=== PATIENT | female | born 1935 | race American Indian/Alaskan Native ===

== ENCOUNTER 2017-04-26 11:00 | Outpatient (CLI) | payer MEDICARE ==
--- NOTE | 2017-04-26 14:48 | Mammography Report ---
BILATERAL DIGITAL SCREENING MAMMOGRAM with CAD :04/26/17 11:00:00 CLINICAL: Routine screening. COMPARISON:07/21/15 FINDINGS: The breasts are extremely dense, which lowers the sensitivity of mammography. Numerous bilateral scattered calcifications with benign morphology are not significantly changed compared to prior exams.No mass, architectural distortion or suspicious calcifications. IMPRESSION: No mammographic evidence of malignancy. BI-RADS CATEGORY: 2 -- Benign RECOMMENDATION: Routine mammographic screening in one year. ACR BI-RADS MAMMOGRAPHIC CODES: 0 = Needs additional imaging evaluation; 1 = Negative; 2 = Benign; 3 = Probably benign; 4 = Suspicious; 5 = Malignant; 6 = Known biopsy-proven malignancy COMMENT: 1. Dense breast tissue, i.e., adenosis, fibrocystic changes, etc., may obscure an underlying neoplasm. 2. Approximately 10% of cancers are not detected with mammography. 3. A negative mammography report should not delay biopsy if a clinically suspicious mass is present. Patient follow-up letters are generated by our [employer] application.
== END 2017-04-26 11:01 | disposition home or self-care (01) ==
LOC: SPVWC 11:00
PROVIDERS: ATTEND Internal Medicine
DX: Z12.31 Encounter for screening mammogram for malignant neoplasm of breast (principal)
CPT/HCPCS: 77067; G0202

== ENCOUNTER 2019-05-04 08:32 | Outpatient (CLI) | payer MEDICARE ==
--- NOTE | 2019-05-04 12:01 | Mammography Report ---
DIGITAL SCREENING MAMMOGRAM WITH CAD, 05/04/2019 INDICATION: Routine screening mammography. TECHNIQUE: Digital bilateral 2D mammography was obtained in the craniocaudal and mediolateral obliq ue projections. This examination was interpreted with the benefit of Computer-Aided Detection analysi s. COMPARISON: 04/26/2017 and 07/21/2015 FINDINGS: Breast Density: The breasts are extremely dense, which lowers the sensitivity of mammography. There is no evidence of dominant mass, suspicious calcifications or architectural distortion in eithe r breast. Multiple groups of bilateral calcifications with benign morphology are stable. IMPRESSION: No mammographic evidence of malignancy. Follow up recommendation: Routine yearly BI-RADS Category 2: Benign. A "normal" or negative report should not discourage follow up or biopsy of a clinically significant f inding. A written summary of these findings will be mailed to the patient. The patient will be entered into a mammography reporting system which will generate a reminder letter for the patient's next appointmen t at the appropriate interval. The [employer] recommends yearly mammograms starting at age 40 and continuing as l nelson as a woman is in good health. Breast MRI is recommended for women with an approximate 20-25% or greater lifetime risk of breast cancer, including women with a strong family history of breast or ova debbie cancer or who have been treated for Hodgkin's disease. Signer Name: Pramod Stone MD Signed: 05/04/2019 11:56 AM Workstation Name: [id number]
== END 2019-05-04 08:33 | disposition home or self-care (01) ==
LOC: SPVWC 08:32
PROVIDERS: ATTEND Internal Medicine
DX: Z12.31 Encounter for screening mammogram for malignant neoplasm of breast (principal)
CPT/HCPCS: 77067

== ENCOUNTER 2021-02-07 19:04 | Inpatient (IN) | payer MEDICARE ==
--- NOTE | 2021-02-07 19:44 | History and Physical Report ---
History of Present Illness Date of examination: 02/07/21 Date of admission: 02/07/2021 Chief complaint: Fever and confusion for 3 days History of present illness: 85-year-old female with past medical history of borderline diabetes and early dementia is being admitted directly for intermittent confusion for 3 days and low-grade fever intermittently for [address] Love suspects urinary tract infection and request made for direct admission. Patient was admitted directly from home on the presumption of confusion and UTI. Patient also has mild cough and congestion. Slightly altered sensorium. More alert when I examined the patient. Patient is on Macrobid for 6 days for UTI and positive nitrites in the urine. No side effects from Macrobid. No shortness of breath no chest pain. Past History Past Medical History: diabetes, hypertension Past Surgical History: No surgical history Social history: lives with family, full code Family history: hypertension Medications and Allergies Allergies Allergy/AdvReac Type Severity Reaction Status Date / Time No Known Allergies Allergy Verified 02/08/21 00:12 Review of Systems All systems: negative Constitutional: fever, fatigue, weakness, poor appetite, no weight loss, no weight gain Ears, nose, mouth and throat: no ear pain, no ear discharge, no tinnitis, no decreased hearing Breasts: deferred Cardiovascular: no chest pain, no orthopnea, no palpitations, no rapid/irregular heart beat, no shortness of breath Respiratory: cough, congestion Gastrointestinal: no abdominal pain, no nausea, no vomiting, no diarrhea, no constipation Genitourinary Female: dysuria Musculoskeletal: no neck pain, no shooting arm pain Integumentary: no rash, no pruritis, no redness Neurological: no seizures, no syncope, no lack of coordination Psychiatric: memory loss (Mild), no anxiety Exam - Constitutional General appearance: Present: no acute distress, well-nourished - EENT Eyes: Present: PERRL ENT: hearing intact, clear oral mucosa - Neck Neck: Present: supple, normal ROM - Respiratory Respiratory effort: normal Respiratory: bilateral: CTA - Cardiovascular Heart rate: 78 Rhythm: regular Heart Sounds: Present: S1 & S2. Absent: rub, click - Extremities Extremities: no ischemia, pulses intact, pulses symmetrical, No edema Peripheral Pulses: within normal limits - Abdominal General gastrointestinal: Present: soft, non-tender, non-distended, normal bowel sounds Female genitourinary: Present: normal - Integumentary Integumentary: Present: clear, warm, dry - Musculoskeletal Musculoskeletal: gait normal, strength equal bilaterally - Psychiatric Psychiatric: appropriate mood/affect, intact judgment & insight - Neurologic Neurologic: CNII-XII intact, moves all extremities - Allied Health Allied health notes reviewed: nursing, case management Results - Labs Labs: Labs are pending Assessment and Plan Advance Directives: Yes (Full code) VTE prophylaxis?: Chemical Plan of care discussed with patient/family: Yes - Patient Problems (1) Acute encephalopathy Current Visit: Yes Status: Acute Plan to address problem: Possibly secondary to fever and respiratory tract infection and previous urinary tract infection Urine is clear CBC and CMP are pending even though ordered 1945 hrs. Treat as presumed UTI/respiratory tract infection IV fluids and IV Rocephin for now Discussed with Dr. Cameron who was at bedside (2) UTI (urinary tract infection) Current Visit: Yes Status: Acute Qualifiers: Urinary tract infection type: acute cystitis Plan to address problem: Treated at home with Macrobid Continue IV ceftriaxone Urine cultures are pending (3) T2DM (type 2 diabetes mellitus) Current Visit: Yes Status: Chronic Qualifiers: Diabetes mellitus shelter insulin use: unspecified shelter insulin use status Plan to address problem: As per daughter's last A1c was 7.3 here the A1c is pending Accu-Cheks AC at bedtime and coverage with moderate dose sliding scale (4) DVT prophylaxis Current Visit: Yes Status: Acute Plan to address problem: On heparin and GI prophylaxis
[2021-02-07] MEDS ORDERED: oxyCODONE /ACETAMINOPHEN 5-325MG TAB PO PRN (19:45)
[2021-02-07] MEDS ORDERED: ACETAMINOPHEN 325 MG TAB PO PRN (19:45)
[2021-02-07] MEDS ORDERED: HYDROmorphone 1 MG/1 ML INJ IV PRN (19:45)
[2021-02-07] MEDS ORDERED: METOCLOPRAMIDE 10 MG/2 ML INJ IV PRN (19:45)
[2021-02-07] MEDS ORDERED: ONDANSETRON 4 MG/2 ML INJ IV PRN (19:45)
[2021-02-07] MEDS ORDERED: D5W/0.9% NACL 1,000 ML IV SCH (20:00)
[2021-02-07 22:27] LABS: Bacteria,Urine 1+ /HPF (Negative); Bilirubin,Urine NEG (Negative); Blood,Urine NEG (Negative); Color,Urine Yellow (Yellow); Mucus,Urine FEW /HPF; Protein,Urine <15 mg/dL mg/dL (Negative); Urobilinogen,Urine < 2.0 mg/dL (<2.0)
[2021-02-08] MEDS ORDERED: cefTRIAXone/NS 2 GM/100 ML 2 GM/100 ML BAG IV SCH ×2 (00:30→22:00)
[2021-02-08] MEDS: INSULIN LISPRO 100 UNIT/ML SUB-Q SCH ×3 (00:55→11:58)
[2021-02-08] MEDS: HEPARIN 5,000 UNIT/1 ML VIAL SUB-Q SCH ×3 (01:01→23:22)
[2021-02-08] MEDS: FAMOTIDINE 20 MG TAB PO SCH ×2 (01:01→10:27)
[2021-02-08 06:39] LABS: Basophils % (Auto) 0.3 % (0.0-1.8); Eosinophils # (Auto) 0.4 K/mm3 (0.0-0.4); Eosinophils % (Auto) 4.3 % (0.0-4.3); Hemoglobin 12.8 gm/dl (10.1-14.3); Lymphocytes % (Auto) 9.4 % (13.4-35.0); Mean Corpuscular HGB Conc 34 % (30-34); Mean Corpuscular Volume 97 fl (79-97); Monocytes # (Auto) 0.6 K/mm3 (0.0-0.8); Monocytes % (Auto) 5.7 % (0.0-7.3); Platelet Count 270 K/mm3 (140-440); Red Blood Count 3.92 M/mm3 (3.65-5.03); Red Cell Distribution Width 14.5 % (13.2-15.2)
[2021-02-08 07:17] LABS: Alanine Aminotransferase 11 units/L (7-56); Albumin 3.2 g/dL (3.9-5); BUN/Creatinine Ratio 16; Blood Urea Nitrogen 13 mg/dL (7-17); C-Reactive Protein 22.1 mg/dL (0.00-1.30); Calcium 9.7 mg/dL (8.4-10.2); Hemolysis Index 7
[2021-02-08 07:51] LABS: Basophils % (Auto) 0.3 % (0.0-1.8); Eosinophils # (Auto) 0.5 K/mm3 (0.0-0.4); Eosinophils % (Auto) 4.6 % (0.0-4.3); Hematocrit 34.8 % (30.3-42.9); Lymphocytes # (Auto) 0.9 K/mm3 (1.2-5.4); Mean Corpuscular HGB Conc 34 % (30-34); Mean Corpuscular Volume 95 fl (79-97); Monocytes # (Auto) 0.6 K/mm3 (0.0-0.8); Monocytes % (Auto) 5.8 % (0.0-7.3); Platelet Count 269 K/mm3 (140-440); Red Blood Count 3.65 M/mm3 (3.65-5.03); Red Cell Distribution Width 14.3 % (13.2-15.2)
[2021-02-08 09:04] LABS: Alanine Aminotransferase 10 units/L (7-56); Blood Urea Nitrogen 13 mg/dL (7-17); Calcium 9.4 mg/dL (8.4-10.2); Hemolysis Index 17
--- NOTE | 2021-02-08 09:09 | XRay Report ---
CHEST 1 VIEW INDICATION: cough. COMPARISON: None FINDINGS: Support devices: None. Heart: Within normal limits. Lungs/Pleura: The interstitium is prominent throughout both lungs which probably represent chronic in terstitial changes. There is no evidence for acute infiltrate, fibrosis, pleural effusion or pneumoth orax. Additional findings: None. IMPRESSION: No acute process is appreciated. Chronic interstitial changes as described. Signer Name: Pernell Benitez Jr, MD Signed: 02/08/2021 9:04 AM Workstation Name: [id number]
[2021-02-08 09:40] LABS: BUN/Creatinine Ratio 19
[2021-02-08 10:01] LABS: Albumin 2.9 g/dL (3.9-5)
[2021-02-08] MEDS ORDERED: HALOPERIDOL LACTATE 5 MG/1 ML INJ IM ONE (13:00)
[2021-02-08] MEDS ORDERED: METOCLOPRAMIDE 10 MG/2 ML INJ IV PRN (13:00)
--- NOTE | 2021-02-08 13:24 | Progress Note ---
Assessment and Plan Assessment and plan: - Patient Problems (1) Acute encephalopathy Current Visit: Yes Status: Acute Plan to address problem: Possibly secondary to fever and respiratory tract infection and previous urinary tract infection Urine is clear CBC and CMP are pending even though ordered 1945 hrs. Treat as presumed UTI/respiratory tract infection IV fluids and IV Rocephin for now Discussed with Dr. Cameron who was at bedside (2) UTI (urinary tract infection) Current Visit: Yes Status: Acute Qualifiers: Urinary tract infection type: acute cystitis Plan to address problem: Treated at home with Macrobid Continue IV ceftriaxone Urine cultures are pending (3) T2DM (type 2 diabetes mellitus) Current Visit: Yes Status: Chronic Qualifiers: Diabetes mellitus [facility] insulin use: unspecified exterminator helper insulin use status Plan to address problem: As per daughter's last A1c was 7.3 here the A1c is pending Accu-Cheks AC at bedtime and coverage with moderate dose sliding scale (4) DVT prophylaxis Current Visit: Yes Status: Acute Plan to address problem: On heparin and GI prophylaxis 02/08/21 Patient with dementia, diabetes, She presented with fever, altered mental status. She was being treated for UTI as outpatient. I discussed with Dr. Torres, daughter at bedside. She states patient had fever of 101 few days ago. Continue Ceftriaxone for UTI. Consulted ID Covid-19 test pending. patient vaccinated Agitation: will give Haldol prn History Interval history: patient presented with fever, cough,altered mental status. Was being treated for UTI as outpatient Fever 101 few days ago Hospitalist Physical - Physical exam Narrative exam: Gen: Not in acute distress, Agitated, trying to get out of bed HEENT: Normocephalic, atraumatic Neck : supple, no JVD Heart:S1 and S2 reg, no murmurs, rubs or gallop Lungs: clear to auscultation bilaterally, no wheeze Abd: Soft , non tender, non distended, normal bowel sounds Ext: No edema, no clubbing, no cyanosis Neuro: Awake, alert, confused, has dementia - Constitutional Vitals: Temp Pulse Resp BP Pulse Ox 0 L 02/07/21 21:46 General appearance: Present: no acute distress, well-nourished Results - Labs CBC & Chem 7: 02/08/21 07:31 02/08/21 07:31 Labs: Laboratory Last Values WBC 10.5 K/mm3 (4.5-11.0) 02/08/21 07:31 RBC 3.65 M/mm3 (3.65-5.03) 02/08/21 07:31 Hgb 12.0 gm/dl (10.1-14.3) 02/08/21 07:31 Hct 34.8 % (30.3-42.9) 02/08/21 07:31 MCV 95 fl (79-97) 02/08/21 07:31 MCH 33 pg (28-32) H 02/08/21 07:31 MCHC 34 % (30-34) 02/08/21 07:31 RDW 14.3 % (13.2-15.2) 02/08/21 07:31 Plt Count 269 K/mm3 (140-440) 02/08/21 07:31 Lymph % (Auto) 9.0 % (13.4-35.0) L 02/08/21 07:31 [place] % (Auto) 5.8 % (0.0-7.3) 02/08/21 07:31 Eos % (Auto) 4.6 % (0.0-4.3) H 02/08/21 07:31 Baso % (Auto) 0.3 % (0.0-1.8) 02/08/21 07:31 Lymph # (Auto) 0.9 K/mm3 (1.2-5.4) L 02/08/21 07:31 [place] # (Auto) 0.6 K/mm3 (0.0-0.8) 02/08/21 07:31 Eos # (Auto) 0.5 K/mm3 (0.0-0.4) H 02/08/21 07:31 Baso # (Auto) 0.0 K/mm3 (0.0-0.1) 02/08/21 07:31 Seg Neutrophils % 80.3 % (40.0-70.0) H 02/08/21 07:31 Seg Neutrophils # 8.4 K/mm3 (1.8-7.7) H 02/08/21 07:31 D-Dimer 1698.67 ng/mlDDU (0-234) H 02/08/21 05:30 Sodium 139 mmol/L (137-145) 02/08/21 07:31 Potassium 3.9 mmol/L (3.6-5.0) 02/08/21 07:31 Chloride 103.3 mmol/L (98-107) 02/08/21 07:31 Carbon Dioxide 24 mmol/L (22-30) 02/08/21 07:31 Anion Gap 16 mmol/L 02/08/21 07:31 BUN 13 mg/dL (7-17) 02/08/21 07:31 Creatinine 0.7 mg/dL (0.6-1.2) 02/08/21 07:31 Estimated GFR > 60 ml/min 02/08/21 07:31 BUN/Creatinine Ratio 19 % 02/08/21 07:31 Glucose 101 mg/dL (65-100) H 02/08/21 07:31 POC Glucose 101 mg/dL (70-105) 02/08/21 11:54 Hemoglobin A1c 6.4 % (4-6) H 02/08/21 05:30 Calcium 9.4 mg/dL (8.4-10.2) 02/08/21 07:31 Ferritin 277.3 ng/mL (10.0-200.0) H 02/08/21 05:30 Total Bilirubin 0.30 mg/dL (0.1-1.2) 02/08/21 07:31 AST 20 units/L (5-40) 02/08/21 07:31 ALT 10 units/L (7-56) 02/08/21 07:31 Alkaline Phosphatase 59 units/L (35-129) 02/08/21 07:31 Lactate Dehydrogenase 236 units/L (91-180) H 02/08/21 05:30 C-Reactive Protein 22.10 mg/dL (0.00-1.30) H 02/08/21 05:30 Total Protein 7.4 g/dL (6.3-8.2) 02/08/21 07:31 Albumin 2.9 g/dL (3.9-5) L 02/08/21 07:31 Albumin/Globulin Ratio 0.7 % 02/08/21 07:31 Procalcitonin 1.55 ng/mL (<0.15) 02/08/21 05:30 Urine Color Yellow (Yellow) 02/07/21 22:00 Urine Turbidity Clear (Clear) 02/07/21 22:00 Urine pH 7.0 (5.0-7.0) 02/07/21 22:00 Ur Specific [place] 1.012 (1.003-1.030) 02/07/21 22:00 Urine Protein <15 mg/dl mg/dL (Negative) 02/07/21 22:00 Urine Glucose (UA) Neg mg/dL (Negative) 02/07/21 22:00 Urine Ketones Neg mg/dL (Negative) 02/07/21 22:00 Urine Blood Neg (Negative) 02/07/21 22:00 Urine Nitrite Neg (Negative) 02/07/21 22:00 Urine Bilirubin Neg (Negative) 02/07/21 22:00 Urine Urobilinogen < 2.0 mg/dL (<2.0) 02/07/21 22:00 Ur Leukocyte Esterase Neg (Negative) 02/07/21 22:00 Urine WBC (Auto) 2.0 /HPF (0.0-6.0) 02/07/21 22:00 Urine RBC (Auto) 2.0 /HPF (0.0-6.0) 02/07/21 22:00 U Epithel Cells (Auto) 3.0 /HPF (0-13.0) 02/07/21 22:00 Urine Bacteria (Auto) 1+ /HPF (Negative) 02/07/21 22:00 Urine Mucus Few /HPF 02/07/21 22:00 Microbiology: Microbiology 02/08/21 05:30 Peripheral/Venous Blood Culture - Preliminary Culture in Progress 02/08/21 06:09 Peripheral/Venous Blood Culture - Preliminary Culture in Progress Hernandez/IV: Voiding Method Toilet Active Medications - Current Medications Current Medications: Generic Name Dose Route Start Last Admin Trade Name Freq PRN Reason Stop Dose Admin Acetaminophen 650 mg 02/07/21 19:45 Acetaminophen 325 Mg Tab PO Q4H PRN Pain MILD(1-3)/Fever >100.5/HICKS Famotidine 10 mg 02/08/21 22:00 Famotidine 10 Mg Tab PO BID APOLINAR Heparin Sodium (Porcine) 5,000 unit 02/07/21 22:00 02/08/21 10:27 Heparin 5,000 Unit/1 Ml Vial SUB-Q 5,000 unit Q12HR APOLINAR Administration Hydromorphone HCl 0.5 mg 02/07/21 19:45 Hydromorphone 1 Mg/1 Ml Inj IV Q3H PRN Pain , Severe (7-10) Dextrose/Sodium Chloride 1,000 mls @ 100 mls/hr 02/07/21 20:00 02/08/21 02:44 D5ns IV 100 mls/hr DIRECT APOLINAR Administration Ceftriaxone Sodium 2 gm in 100 mls @ 200 mls/hr 02/08/21 22:00 Rocephin/Ns 2 Gm/100 Ml IV 02/12/21 23:59 QHS APOLINAR Protocol Insulin Human Lispro 0 unit 02/07/21 22:00 02/08/21 11:58 Insulin Lispro 100 Unit/Ml SUB-Q Not Given ACHS APOLINAR Protocol Metoclopramide HCl 5 mg 02/08/21 13:00 Metoclopramide 10 Mg/2 Ml Inj IV Q6H PRN Nausea And Vomiting Ondansetron HCl 4 mg 02/07/21 19:45 Ondansetron 4 Mg/2 Ml Inj IV Q3H PRN Nausea And Vomiting Oxycodone/Acetaminophen 1 tab 02/07/21 19:45 Oxycodone /Acetaminophen 5-325mg Tab PO Q6H PRN Pain, Moderate (4-6) Sodium Chloride 10 ml 02/07/21 22:00 02/08/21 10:27 Sodium Chloride 0.9% 10 Ml Flush Syringe IV 10 ml BID APOLINAR Administration Sodium Chloride 10 ml 02/07/21 19:45 Sodium Chloride 0.9% 10 Ml Flush Syringe IV PRN PRN LINE FLUSH
--- NOTE | 2021-02-08 13:32 | Consultation ---
History of Present Illness - Reason for Consult Consult date: 02/08/21 UTI, confusion Requesting physician: DANG SALAZAR - History of Present Illness The patient is an 85-year-old female with borderline diabetes, early dementia admitted to the hospital with intermittent confusion and low-grade fevers for 3 days. Patient was receiving oral Macrobid for a presumed UTI as an outpatient. Patient also has mild cough with congestion, not hypoxic. Upon admission so far, WBC count is normal, D-dimer 1698, renal and liver function normal, ferritin 277, CRP 22.1, procalcitonin 1.5. UA did not show any significant pyuria. Review of Systems: Limited due to confusion Past History Past Medical History: diabetes, hypertension Past Surgical History: No surgical history Social history: lives with family, full code Family history: hypertension Medications and Allergies Allergies Allergy/AdvReac Type Severity Reaction Status Date / Time No Known Allergies Allergy Verified 02/08/21 00:12 Home Medications Medication Instructions Recorded Confirmed Last Taken Type No Known Home Medications [No 02/08/21 02/08/21 Unknown History Reported Home Medications] Active Meds: Active Medications Acetaminophen (Acetaminophen 325 Mg Tab) 650 mg PO Q4H PRN PRN Reason: Pain MILD(1-3)/Fever >100.5/HICKS Famotidine (Famotidine 10 Mg Tab) 10 mg PO BID APOLINAR Heparin Sodium (Porcine) (Heparin 5,000 Unit/1 Ml Vial) 5,000 unit SUB-Q Q12HR APOLINAR Last Admin: 02/08/21 10:27 Dose: 5,000 unit Documented by: Hydromorphone HCl (Hydromorphone 1 Mg/1 Ml Inj) 0.5 mg IV Q3H PRN PRN Reason: Pain , Severe (7-10) Dextrose/Sodium Chloride (D5ns) 1,000 mls @ 100 mls/hr IV DIRECT APOLINAR Last Admin: 02/08/21 02:44 Dose: 100 mls/hr Documented by: Ceftriaxone Sodium (Rocephin/Ns 1 Gm/50 Ml) 1 gm in 50 mls @ 100 mls/hr IV Q24HR APOLINAR; Protocol Insulin Human Lispro (Insulin Lispro 100 Unit/Ml) 0 unit SUB-Q ACHS APOLINAR; Protocol Last Admin: 02/08/21 11:58 Dose: Not Given Documented by: Metoclopramide HCl (Metoclopramide 10 Mg/2 Ml Inj) 5 mg IV Q6H PRN PRN Reason: Nausea And Vomiting Ondansetron HCl (Ondansetron 4 Mg/2 Ml Inj) 4 mg IV Q3H PRN PRN Reason: Nausea And Vomiting Oxycodone/Acetaminophen (Oxycodone /Acetaminophen 5-325mg Tab) 1 tab PO Q6H PRN PRN Reason: Pain, Moderate (4-6) Sodium Chloride (Sodium Chloride 0.9% 10 Ml Flush Syringe) 10 ml IV BID APOLINAR Last Admin: 02/08/21 10:27 Dose: 10 ml Documented by: Sodium Chloride (Sodium Chloride 0.9% 10 Ml Flush Syringe) 10 ml IV PRN PRN PRN Reason: LINE FLUSH Physical Examination - Physical Exam Narrative exam: Physical Exam: Constitutional: Alert. No acute distress Head, Ears, Nose: Normocephalic, atraumatic. External ears, nose normal Eyes: Conjunctivae/corneas clear. No icterus. No ptosis. Neck: Supple, no meningeal signs Cardiovascular: S1, S2 + Respiratory: decreased air entry bilaterally GI: Soft, non-tender; bowel sounds normal. No peritoneal signs Musculoskeletal: No pedal edema, no cyanosis. Skin: No rash or abscess Hem/Lymphatic: No palpable cervical or supraclavicular nodes. No lymphangitis Psych: restless Neurological: Awake, alert, but confused - Constitutional Vitals: Vital Signs Temp Pulse Resp BP Pulse Ox 97.9 F 117 H 20 156/77 98 02/08/21 11:56 02/08/21 11:56 02/08/21 11:56 02/08/21 11:56 02/08/21 11:56 Temperature -Last 24 Hours Temperature 97.9 F Temperature 98.3 F Results - Labs CBC & Chem 7: 02/08/21 07:31 02/08/21 07:31 Labs: Abnormal lab results 02/08/21 02/08/21 02/08/21 Range/Units 00:07 05:30 05:30 MCH 33 H (28-32) pg Lymph % (Auto) 9.4 L (13.4-35.0) % Eos % (Auto) (0.0-4.3) % Lymph # (Auto) 1.0 L (1.2-5.4) K/mm3 Eos # (Auto) (0.0-0.4) K/mm3 Seg Neutrophils % 80.3 H (40.0-70.0) % Seg Neutrophils # 8.3 H (1.8-7.7) K/mm3 D-Dimer (0-234) ng/mlDDU Glucose 105 H (65-100) mg/dL POC Glucose 119 H (70-105) mg/dL Hemoglobin A1c (4-6) % Ferritin (10.0-200.0) ng/mL Lactate Dehydrogenase (91-180) units/L C-Reactive Protein (0.00-1.30) mg/dL Albumin 3.2 L (3.9-5) g/dL 02/08/21 02/08/21 02/08/21 Range/Units 05:30 05:30 05:30 MCH (28-32) pg Lymph % (Auto) (13.4-35.0) % Eos % (Auto) (0.0-4.3) % Lymph # (Auto) (1.2-5.4) K/mm3 Eos # (Auto) (0.0-0.4) K/mm3 Seg Neutrophils % (40.0-70.0) % Seg Neutrophils # (1.8-7.7) K/mm3 D-Dimer 1698.67 H (0-234) ng/mlDDU Glucose 104 H (65-100) mg/dL POC Glucose (70-105) mg/dL Hemoglobin A1c 6.4 H (4-6) % Ferritin (10.0-200.0) ng/mL Lactate Dehydrogenase 236 H (91-180) units/L C-Reactive Protein 22.10 H (0.00-1.30) mg/dL Albumin (3.9-5) g/dL 02/08/21 02/08/21 02/08/21 Range/Units 05:30 07:31 07:31 MCH 33 H (28-32) pg Lymph % (Auto) 9.0 L (13.4-35.0) % Eos % (Auto) 4.6 H (0.0-4.3) % Lymph # (Auto) 0.9 L (1.2-5.4) K/mm3 Eos # (Auto) 0.5 H (0.0-0.4) K/mm3 Seg Neutrophils % 80.3 H (40.0-70.0) % Seg Neutrophils # 8.4 H (1.8-7.7) K/mm3 D-Dimer (0-234) ng/mlDDU Glucose 101 H (65-100) mg/dL POC Glucose (70-105) mg/dL Hemoglobin A1c (4-6) % Ferritin 277.3 H (10.0-200.0) ng/mL Lactate Dehydrogenase (91-180) units/L C-Reactive Protein (0.00-1.30) mg/dL Albumin 2.9 L (3.9-5) g/dL 02/08/21 Range/Units 08:39 MCH (28-32) pg Lymph % (Auto) (13.4-35.0) % Eos % (Auto) (0.0-4.3) % Lymph # (Auto) (1.2-5.4) K/mm3 Eos # (Auto) (0.0-0.4) K/mm3 Seg Neutrophils % (40.0-70.0) % Seg Neutrophils # (1.8-7.7) K/mm3 D-Dimer (0-234) ng/mlDDU Glucose (65-100) mg/dL POC Glucose 69 L (70-105) mg/dL Hemoglobin A1c (4-6) % Ferritin (10.0-200.0) ng/mL Lactate Dehydrogenase (91-180) units/L C-Reactive Protein (0.00-1.30) mg/dL Albumin (3.9-5) g/dL - Imaging and Cardiology Chest x-ray: report reviewed, image reviewed (no obvious pneumonia seen) Assessment and Plan Cultures: 02/08/2021 blood culture: In process A/P: 85-year-old female with borderline diabetes, early dementia admitted to the hospital with intermittent confusion and low-grade fevers for 3 days: #UTI: UA without pyuria but treated as outpatient with p.o. Macrobid which may affect results. CRP, procalcitonin elevated. Agree with ruling out COVID-19. #Cough: CXR without obvious pneumonia. Patient is vaccinated against COVID-19 with Pfizer vaccine. #Acute encephalopathy: Probably toxic/metabolic with background of dementia. Recs: -continue Ceftriaxone, dose decreased to 1 gm daily -f/u COVID-19 -if afebrile and cultures negative, would discharge on PO Cefdinir 300 mg BID to complete total 7 days d/w Dr. Salazar and patient's daughter Dr. Brian Babin MD, [facility] O: [phone] F: [phone]
[2021-02-08] MEDS ORDERED: HALOPERIDOL LACTATE 5 MG/1 ML INJ IM PRN (14:30)
[2021-02-08] MEDS: cefTRIAXone/NS 1 GM/50 ML 1 GM/50 ML BAG IV SCH (17:24)
[2021-02-08] MEDS: FAMOTIDINE 10 MG TAB PO SCH (23:23)
[2021-02-09] MEDS: INSULIN LISPRO 100 UNIT/ML SUB-Q SCH ×4 (00:50→12:52)
[2021-02-09 07:40] LABS: Hematocrit 36.4 % (30.3-42.9); Hemoglobin 12.3 gm/dl (10.1-14.3); Mean Corpuscular HGB Conc 34 % (30-34); Mean Corpuscular Volume 96 fl (79-97); Platelet Count 282 K/mm3 (140-440); Red Cell Distribution Width 14.3 % (13.2-15.2)
[2021-02-09 07:48] LABS: Blood Urea Nitrogen 11 mg/dL (7-17); Calcium 9.4 mg/dL (8.4-10.2); Hemolysis Index 7
[2021-02-09 07:54] LABS: BUN/Creatinine Ratio 16
[2021-02-09] MEDS ORDERED: hydrALAZINE 20 MG/1 ML INJ IV PRN (08:04)
[2021-02-09] MEDS ORDERED: amLODIPine 5 MG TAB PO SCH (10:00)
[2021-02-09] MEDS: cefTRIAXone/NS 1 GM/50 ML 1 GM/50 ML BAG IV SCH (10:55)
[2021-02-09] MEDS: HEPARIN 5,000 UNIT/1 ML VIAL SUB-Q SCH (10:56)
[2021-02-09] MEDS: FAMOTIDINE 10 MG TAB PO SCH (10:56)
--- NOTE | 2021-02-09 13:01 | Progress Note ---
Assessment and Plan Cultures: 02/08/2021 blood culture: no growth Urine culture: mixed clifford COVID-19 negative A/P: 85-year-old female with borderline diabetes, early dementia admitted to the hospital with intermittent confusion and low-grade fevers for 3 days: #UTI: UA without pyuria but treated as outpatient with p.o. Macrobid which may affect results. CRP, procalcitonin elevated. COVID-19 negative. #Cough: CXR without obvious pneumonia. Patient is vaccinated against COVID-19 with Pfizer vaccine. COVID-19 negative. #Acute encephalopathy: Probably toxic/metabolic with background of dementia. Recs: -continue Ceftriaxone 1 gm daily, D3, would discharge on PO Cefdinir 300 mg BID to complete total 7 days -VTE eval per IMS d/w patient's daughter Dr. Brian Babin MD, [facility] ([facility] O: [phone] F: [phone] Subjective Date of service: 02/09/21 Interval history: Afebrile. Resting comfortably. Daughter at bedside, all questions answered. Objective - Exam Narrative Exam: Physical Exam: Constitutional: sleeping, no distress Head, Ears, Nose: Normocephalic, atraumatic. External ears, nose normal Eyes: Conjunctivae/corneas clear. No icterus. No ptosis. Neck: Supple, no meningeal signs Cardiovascular: S1, S2 + Respiratory: decreased air entry bilaterally GI: Soft, non-tender; bowel sounds normal. No peritoneal signs Musculoskeletal: No pedal edema, no cyanosis. Skin: No rash or abscess Hem/Lymphatic: No palpable cervical or supraclavicular nodes. No lymphangitis Psych: calm, no agitation Neurological: sleeping - Constitutional Vitals: Vital Signs Temp Pulse Resp BP Pulse Ox 98.2 F 95 H 20 148/65 99 02/08/21 21:59 02/09/21 10:56 02/08/21 21:59 02/09/21 10:56 02/08/21 21:59 Temperature -Last 24 Hours Temperature 98.2 F Temperature 98.6 F - Labs CBC & Chem 7: 02/09/21 06:37 02/09/21 06:37 Labs: Abnormal lab results 02/08/21 02/08/21 02/09/21 Range/Units 16:53 21:56 06:37 Glucose 106 H (65-100) mg/dL POC Glucose 122 H 184 H (70-105) mg/dL 02/09/21 Range/Units 11:59 Glucose (65-100) mg/dL POC Glucose 127 H (70-105) mg/dL
--- NOTE | 2021-02-09 15:05 | Vascular Lab Report ---
DUPLEX DOPPLER LOWER EXTREMITY VEINS, BILATERAL INDICATION / CLINICAL INFORMATION: Elevated d-dimer. TECHNIQUE: Duplex doppler imaging was performed through the veins of both lower extremities using kannan ous compression and other maneuvers. COMPARISON: None available. FINDINGS: RIGHT COMMON FEMORAL VEIN: Negative. RIGHT FEMORAL VEIN: Negative. RIGHT POPLITEAL VEIN: Negative. RIGHT CALF VEINS: Negative. LEFT COMMON FEMORAL VEIN: Negative. LEFT FEMORAL VEIN: Negative. LEFT POPLITEAL VEIN: Negative. LEFT CALF VEINS: Negative. ADDITIONAL FINDINGS: None. IMPRESSION: 1. No sonographic evidence for DVT in either lower extremity. Signer Name: Jorge Mcnair MD Signed: 02/09/2021 3:01 PM Workstation Name: [id number]
--- NOTE | 2021-02-09 15:23 | Cat Scan Report ---
CTA CHEST WITH CONTRAST INDICATION : Elevated d-dimer to be done 100 ml omni 350. TECHNIQUE: Axial imaging performed through the chest, with contrast bolus timing set to maximize opa cification of the pulmonary arteries. Sagittal and coronal reformatted images. 3-plane MIP reformatte d images were obtained. All CT scans at this location are performed using CT dose reduction for ALAR A by means of automated exposure control. 100 mL of intravenous contrast administered. COMPARISON: None FINDINGS: Bolus: Contrast bolus timing is adequate. PTE: No filling defect is present to suggest PTE. Mediastinum: Heart and great vessels appear normal. No pathologic mediastinal adenopathy. Lungs: Mild pulmonary venous congestion and small pleural effusions are identified. No evidence for infiltrate, mass or pneumothorax. Bones: Degenerative changes in the spine with nothing acute. Upper abdomen: Limited imaging of the upper abdomen shows nothing acute. IMPRESSION: No evidence for pulmonary embolus. Mild pulmonary venous congestion and small bilateral pleural effusions. Signer Name: Pernell Benitez Jr, MD Signed: 02/09/2021 3:18 PM Workstation Name: [id number]
--- NOTE | 2021-02-09 15:56 | Discharge Summary ---
Providers - Providers Date of Admission: 02/07/21 20:46 Date of discharge: 02/09/21 Attending physician: DANG SALAZAR 02/08/21 10:22 Consult to Physician [CONS] Routine Comment: Consulting Provider: ROBER SAXENA Physician Instructions: Reason For Exam: Fever, altered mental status,UTI from home 02/09/21 13:51 Physical Therapy Evaluation and Treat [CONS] Routine Comment: Reason For Exam: weakness Primary care physician: CHARGING OPERATOR Hospitalization Condition: Fair Hospital course: 85-year-old female with past medical history of borderline diabetes and early dementia is being admitted directly for intermittent confusion for 3 days and low-grade fever intermittently for [address] Love suspects urinary tract infection and request made for direct admission. Patient was admitted directly from home on the presumption of confusion and UTI. Patient also has mild cough and congestion. Slightly altered sensorium. Patient is on Macrobid for 6 days for UTI and positive nitrites in the urine. No side effects from Macrobid. No shortness of breath no chest pain. She was seen in ED and admitted. ID Physician was consulted. She was seen by Dr. Saxena and Ceftriaxone continued. Covid test was negative. She improved. CT Chest negative for PE. She was discharged home on Cefdinir and Amlodipine on 02/09/21. She had markedly elevated BP multiple times so diagnosed with hypertension. (1) Acute encephalopathy Current Visit: Yes Status: Acute Plan to address problem: Possibly secondary to fever and respiratory tract infection and previous urinary tract infection Urine is clear CBC and CMP are pending even though ordered 1945 hrs. Treat as presumed UTI/respiratory tract infection IV fluids and IV Rocephin for now Discussed with Dr. Cameron who was at bedside (2) UTI (urinary tract infection) Current Visit: Yes Status: Acute Qualifiers: Urinary tract infection type: acute cystitis Plan to address problem: Treated at home with Macrobid Continue IV ceftriaxone Urine cultures are pending (3) T2DM (type 2 diabetes mellitus) Current Visit: Yes Status: Chronic Qualifiers: Diabetes mellitus fdc insulin use: unspecified oil heaterman insulin use status Plan to address problem: As per daughter's last A1c was 7.3 here the A1c is pending Accu-Cheks AC at bedtime and coverage with moderate dose sliding scale (4) DVT prophylaxis Current Visit: Yes Status: Acute Plan to address problem: On heparin and GI prophylaxis 02/08/21 Patient with dementia, diabetes, She presented with fever, altered mental status. She was being treated for UTI as outpatient. I discussed with Dr. Torres, daughter at bedside. She states patient had fever of 101 few days ago. Continue Ceftriaxone for UTI. Consulted ID Covid-19 test pending. patient vaccinated Agitation: will give Haldol prn 02/09/21 patient close to baseline. CT Angio negative for pulm embolism but shows pulmonary congestion and small bilateral pleural effusion. I discussed this with Dr. Torres her daughter and recommend follow up with PCP. Covid test negative. Disposition: HOME / SELF CARE / HOMELESS Final Discharge Diagnosis (Prints w/discharge instructions): 1.UTI - Discharge Diagnoses (1) Hypertension Status: Acute (2) Pleural effusion Status: Acute (3) Acute encephalopathy Status: Acute (4) UTI (urinary tract infection) Status: Acute Qualifiers: Urinary tract infection type: acute cystitis Core Measure Documentation - Palliative Care Palliative Care/ Comfort Measures: Not Applicable - Core Measures Any of the following diagnoses?: none Exam - Constitutional Vitals: Temp Pulse Resp BP Pulse Ox 98.4 F 94 H 22 166/76 95 02/09/21 12:01 02/09/21 12:01 02/09/21 12:01 02/09/21 12:01 02/09/21 12:01 Plan Activity: advance as tolerated Diet: low fat, low cholesterol, low salt, diabetic Special Instructions: physical therapy Plan of Treatment: 1. Follow up with PCP in 1 week Follow up with: PRIMARY MD TANG [Primary Care Provider] - 7 Days Prescriptions: amLODIPine 5 mg PO QDAY #30 tablet Cefdinir 300 mg PO BID #10 capsule
[2021-02-09 17:16] VITALS: BP 158/64
== END 2021-02-09 17:43 | disposition home or self-care (01) | DRG 689 ==
LOC: 3A 19:04 → UNDOADMOB 19:04 → 3A 20:46 → MERGE 20:46 → OBSVTOIN 20:46
PROVIDERS: ADMIT Internal Medicine; ATTEND Internal Medicine
DX: N39.0 Urinary tract infection, site not specified (principal); G92 Toxic encephalopathy; E11.9 Type 2 diabetes mellitus without complications; I10 Essential (primary) hypertension; F03.90 Unspecified dementia, unspecified severity, without behavioral disturbance, psychotic disturbance, mood disturbance, and anxiety; Z20.822 Contact with and (suspected) exposure to COVID-19; Z82.49 Family history of ischemic heart disease and other diseases of the circulatory system
CPT/HCPCS: 36415; 71045; 71275; 80048; 80053; 81001; 82728; 82947; 82962; 83036; 83615; 84145; 85025; 85027; 85379; 86140; 87040; 87086; 93970; G0378; J0696; J1630; J1644; J1815; J7042; Q9967; U0003